=== PATIENT | female | born 1965 | race Caucasian/White ===

== ENCOUNTER → 2019-12-06 | Outpatient (CLI) | payer OTHER, SELFPAY ==
[2019-12-06 09:50] VITALS: BMI 26.5
--- NOTE | 2019-12-06 09:51 | RAD_ITS ---
STUDY: X-RAY - PELVIS AND LEFT HIP REASON FOR EXAM: Female, 54 years old. left hip pain TECHNIQUE: 3 views of the pelvis and hip. COMPARISON: None. FINDINGS: There is a non-specific bowel gas pattern. Normal visualized soft tissue structures. Intact pelvic ring without fracture deformity. Mild degenerative changes of the sacroiliac joints and symphysis pubis. Normal bilateral superior and inferior pubic rami. Normal pubic symphysis. Normal bilateral ischial tuberosities. Slightly flattened femoral head with marginal osteophytes and degenerative cyst formation. Acetabular spurring and degenerative cyst formation. Severe narrowing of the superior joint space and widening of the inferior joint space. RAD/HIP, UNI W/ Pelvis 2-3 Views IMPRESSION: Advanced osteoarthritic changes of the left hip. Electronically Signed: Rema Davison MD at 23:47 EDT , Service support ,
== END | disposition home or self-care (01) ==
LOC: HPRAD 09:51
PROVIDERS: PCP Internal Medicine; Referring Provider Orthopaedic Surgery; Visit Provider Orthopaedic Surgery
DX: M25.552 Pain in left hip (principal)
CPT/HCPCS: 73502

== ENCOUNTER 2020-07-16 14:29 | Outpatient (RCR) | payer OTHER, SELFPAY ==
[2019-12-06 09:50] VITALS: BMI 26.5
--- NOTE | 2020-07-17 19:10 | HP.PTEVAL ---
Patient's Visit Information ARNEL BRAVO is a 55 year old F referred to Physical Therapy by GRAEME VELASQUEZ with a diagnosis of L SARIAH. Date of Evaluation: 07/16/20 Physical Therapist: Jake Nevarez DPT - Visit Plan Frequency: 2x /Week Duration: 4 Weeks Plan: Start with increased ROM and isometric LLE strengthening. Progress walking and general mobility with FWW, reducing pain allowing for improved gait pattern. Pt. reports PT being expensive and having a difficulty time getting her. She desires to do her exercises on her own untill following up with doctor next week. I agreed to this, but to follow up with PT in 2 weeks. - Subjective Pt. is here today for her initial evaluation with diagnosis of L SARIAH, wtih anterior approach. Pt. reports having surgery 07/09/20. Pt. has been home doing well since. Pt. arrives today useing a FWW, accompanied by her friend. Pt. reports having soreness in her L hip and thigh, but is manageable. She reports doing ankle pumps, heel slides, walking and icing at home. She denies N/T, no calf pain, no dizziness or blurred/double vision. Pt. does report having trouble lifting her L leg up. She does report some mild tingling in the lateral aspect of her L leg, but not feeling like her leg is giving out on her. She work in a factor as a manager financial reporting and reports being eager to get back to work. She does live ~45 minutes away, but we were the closest provider for her. She is having some trouble sleeping, but secondary to pain. Pt. has taking her pain medication as needed. She is hopeful to increase her LLE strength, ROM and get back to walking without limitations. Pt. to return to physician on the Jul. - Pain L hip Pain Intensity (Out of 10): 4 Pain Intensity Range: 2, 6 - Objective POSTURE: Pt. has good posture in stance, slight hip flexion and slight R lateral hip lean. Light use of AD. PALPATION: Pt. has tenderness along quad, anterior and lateral hip. Pt. to take off her bandages tomorrow. Minimal brusing noted. Negative Homans sign. NEURO: normal sensation and DTR of BLEs. ROM: L hip- PASSIVE- flexion 90deg, abd 30deg, ext neutral. Assive- flexion 60deg (heel slide), abd 30deg. Did not test ER/IR motions. Pt. has tight HS bilaterally L worse than R. L length at 50deg. MMT:RLE- 5/5 throughout. LLE- ankle 5/5 throughout; knee- ext 4/5, flexion 4/5. Hip- flexion 3-/5, abd 3/5. GAIT: Pt. is able to ambulate well with FWW. Pt. does lack hip extension and tends to rotation through her trunk to allow for greater R step length. Improves iwth increased walking. STAIRS: step to pattern with 2 HR and with 1 crutch and 1 HR. - Goals Goal 1:: LTG: Pt. to be I with HEP. Goal Time Frame: 4-6 Weeks Goal 2:: STG: Pt. to sleep throughout the night without increase in symptoms. Goal Time Frame: 2 Weeks Goal 3:: LTG: pt. to ambulate without AD with normal gait pattern for unlimited distances without increase in symptoms. Goal Time Frame: 4-6 Weeks Goal 4:: LTG: Pt. to have increased strength throughout LLE by 1/2/ grade. Goal Time Frame: 4-6 Weeks Goal 5:: STG: Pt. to have increased ROM of L hip by 25% without increase in symptoms. Goal Time Frame: 2-4 Weeks - Rehabilitation Potential Physical Therapy Diagnosis: Pt. has signs and symptoms consistent with L SARIAH adn subsequent weakness, hypomobility, increased pain and difficulty walking. Pt would benefit from PT to work on above limitations progressing back to all work and recreational activities without limitations. Rehabilitation Potential: Excellent - Anticipated Interventions Patient/Client Instruction: Educate patient on: Condition, Plan of Care, Risk Factors, Benefits of Fitness Program For the Purpose of:: To improve self management, To prevent re-injury, To improve ability to perform tasks related to life management, To improve tolerance to ADL's Therapeutic Exercise to Include: Strength training, Power training, Endurance training, Coordination, Gait and locomotor training, Passive ROM, Active ROM For the Purpose of:: To decrease pain, To decrease swelling/inflammation, To increase ROM, To improve nutrient delivery to tissue, To increase oxygenation perfusion, To improve muscle performance and motor function, To improve performance and independence with ADL's, To improve gait and locomotor functions, To improve health of tissue Thermo therapy (hot pack): Yes For the Purpose of:: To decrease pain, To decrease swelling/inflammation, To increase ROM Thank you for the opportunity to evaluate your patient. For Medicare and Medicare HMO plans, please review the plan of care and approve it. It will need to be FAXED BACK to us at [phone] for Medicare purposes. For Medicare only, by signing this I certify the plan of care. Please let me know if there are questions or concerns regarding this plan of care. Physician Signature: Date:
--- NOTE | 2020-12-16 17:53 | HP.PT.NRP ---
ARNEL BRAVO was seen in my office for initial evaluation on 07/16/20. The following Plan of Care was established for this patient: Initial Frequency: 2x /Week Initial Duration: 4 Weeks Patient/Client Instruction: Educate patient on: Condition, Plan of Care, Risk Factors, Benefits of Fitness Program For the Purpose of:: To improve self management, To prevent re-injury, To improve ability to perform tasks related to life management, To improve tolerance to ADL's Therapeutic Exercise to Include: Strength training, Power training, Endurance training, Coordination, Gait and locomotor training, Passive ROM, Active ROM For the Purpose of:: To decrease pain, To decrease swelling/inflammation, To increase ROM, To improve nutrient delivery to tissue, To increase oxygenation perfusion, To improve muscle performance and motor function, To improve performance and independence with ADL's, To improve gait and locomotor functions, To improve health of tissue Thermo therapy (hot pack): Yes For the Purpose of:: To decrease pain, To decrease swelling/inflammation, To increase ROM This patient was last seen in our office 07/16/20. Pertinent comments regarding their Physical therapy will appear below: Pt. was seen for her initial evaluation with diagnosis of L SARIAH. Pt. was doing very well at her initial appointment and was to do some exercises on her own for 1 weeks. She never returned to PT and has not been seen in several months. Pt. will be DC from PT at this point in time. At this point I will be discontinuing this patient from physical therapy. I would be happy to see this patient again in the future if found appropriate by the physician. Thank you! Jake Nevarez DPT
== END 2020-07-16 19:00 | disposition home or self-care (01) ==
LOC: PT 14:29
PROVIDERS: PCP Internal Medicine
DX: Z47.1 Aftercare following joint replacement surgery (principal); Z96.642 Presence of left artificial hip joint; M16.12 Unilateral primary osteoarthritis, left hip
CPT/HCPCS: 97161

== ENCOUNTER → 2023-03-24 | Outpatient (CLI) | payer OTHER, SELFPAY ==
--- NOTE | 2023-03-24 10:34 | MRI_ITS ---
HISTORY: LOW BACK PAIN, RIGHT SCIATICA, HX PRIOR SURGERY TECHNIQUE: Multiplanar and multisequence MR images of the lumbar spine were obtained without intravenous contrast. 130 images. COMPARISON: XR 02/18/2023. FINDINGS: VERTEBRAE: Vertebral body heights maintained. Mild degenerative bone marrow endplate changes of L5-S1. ALIGNMENT: No anterior or posterior subluxation. CONUS: Normal morphology and position of the conus medullaris at L1-2. INTERVERTEBRAL DISCS: T12-L1: No significant posterior disc protrusion, central canal stenosis, or foraminal narrowing based on the sagittal images. L1-2, L2-3: No significant posterior disc protrusion, central canal stenosis, or foraminal narrowing. L3-4: Right paracentral disc protrusion with mild facet arthropathy resulting in mild central canal stenosis and bilateral foraminal narrowing with abutment of the right L3 nerve root. L4-5: Minimal disc bulge with mild facet arthropathy resulting in minimal narrowing of the thecal sac and mild bilateral foraminal narrowing. L5-S1: Moderate-severe intervertebral disc space narrowing. Mild posterior disc bulge osteophyte complex with mild facet arthropathy resulting in mild-moderate bilateral foraminal narrowing with abutment of the right L5 nerve root. Decompressive laminectomy. No significant central canal stenosis. SOFT TISSUES: No paraspinal fluid collection. Subcentimeter right renal cyst. MRI/Spine Lumbar (Routine) IMPRESSION: Mild right paracentral disc protrusion of L3-4 resulting in mild spinal canal stenosis and bilateral foraminal narrowing with right nerve root abutment. Very mild degenerative disc disease at L4-5 resulting in mild bilateral foraminal narrowing. Postoperative change of L5-S1 without significant spinal canal stenosis. Residual degenerative change with bilateral foraminal narrowing and right nerve root abutment. Electronically Signed: Leslee Goodson MD at 12:11 EDT ,
== END | disposition home or self-care (01) ==
LOC: MRI 10:21
PROVIDERS: PCP Internal Medicine; Referring Provider Orthopaedic Surgery; Visit Provider Orthopaedic Surgery
DX: M51.37 Other intervertebral disc degeneration, lumbosacral region (principal)
CPT/HCPCS: 72148

== ENCOUNTER → 2023-07-14 | Outpatient (CLI) | payer OTHER, SELFPAY ==
--- NOTE | 2023-07-14 13:08 | NEURO ---
NCS and/or EMG Patient Report Ordering Doctor: Jeff Christensen DATE OF SERVICE: 07/14/23 Kendy presents for her diagnostic testing of the right lower limb. She reports sharp pain radiating from the hip to the knee. She reports numbness in the foot. She has a history of lower back pain and spinal surgery. Electrodiagnostic findings: Right peroneal motor nerve demonstrates normal distal latency, amplitude and conduction velocity. Right tibial motor nerve demonstrates normal distal latency, amplitude and conduction velocity. Normal right tibial and peroneal F-waves. Normal right and left H?reflex. Sensory responses are within normal limits. Needle EMG testing was performed in the right lower limb. All muscles tested showed no evidence of denervation with normal motor unit action potentials. Electrodiagnostic impression: This is a normal electrodiagnostic study in the right lower limb. There is no electrodiagnostic evidence for peripheral neuropathy or lumbosacral radiculopathy. Multi Select Codes Neurology Neurology Interp Codes: 84237-47 Musc test done w/n test comp (interp) and 31796-17 Nrv cndj test 7-8 studies (interp)
== END | disposition home or self-care (01) ==
LOC: PSN 12:24
PROVIDERS: PCP Internal Medicine; Referring Provider Orthopaedic Surgery; Visit Provider Orthopaedic Surgery
DX: G57.91 Unspecified mononeuropathy of right lower limb (principal)
CPT/HCPCS: 95886; 95910